=== PATIENT | male | born 1990 | race Caucasian/White ===

== ENCOUNTER 2021-11-22 09:39 | Outpatient (CLI) | payer OTHER | END 2021-11-22 09:40 | disposition home or self-care (01) | LOC: CSHULT 09:39 | PROVIDERS: ATTEND Internal Medicine | DX: R10.11 Right upper quadrant pain (principal); K92.1 Melena; K21.9 Gastro-esophageal reflux disease without esophagitis | CPT/HCPCS: 76705 ==